=== PATIENT | male | born 1970 | race Two or more races ===

== ENCOUNTER 2021-10-25 13:05 | Emergency (ER) | payer OTHER ==
[~2021-10-25] VITALS: Ht 177.8 cm; Wt 117.9 kg
[2021-10-25 13:31] VITALS: BP 136/84
== END 2021-10-25 13:43 | disposition home or self-care (01) ==
LOC: ER 13:05
DX: H10.31 Unspecified acute conjunctivitis, right eye (principal); J45.909 Unspecified asthma, uncomplicated; I12.9 Hypertensive chronic kidney disease with stage 1 through stage 4 chronic kidney disease, or unspecified chronic kidney disease; N18.9 Chronic kidney disease, unspecified; F17.210 Nicotine dependence, cigarettes, uncomplicated